=== PATIENT | female | born 1980 | race Caucasian/White ===

== ENCOUNTER 2018-07-02 09:59 | Outpatient (CLI) | payer OTHER ==
--- NOTE | 2018-07-02 11:54 | MRI ---
ADDENDUM: L4-L5: There is mild increased T2 weighted signal intensity seen on the fluid sensitive sequences, s een in the interspinous ligament, at the L4-L5 level, which may be related to mild strain. Prior lig amentous injury cannot be entirely excluded. IMPRESSION: There is mild increased T2 weighted signal intensity seen on the fluid sensitive sequences, seen in t he interspinous ligament, at the L4-L5 level, which may be related to mild strain. Prior ligamentous injury cannot be entirely excluded. POS: JOSE
--- NOTE | 2018-07-06 07:23 | MRI ---
MRI LUMBAR SPINE NONCONTRAST: 07/02/2018 HISTORY: Lumbar radiculopathy with pain radiating from the low back into the left lower extremity, to the leve l of the foot. Symptoms have been present for three to four months. COMPARISON: None available. FINDINGS: The retroperitoneal structures demonstrate a grossly normal nonenhanced MRI appearance. The conus me dullaris is normal in appearance and terminates at the T12-L1 level. There are endplate degenerative changes at the L4-L5 level. There is otherwise normal signal intensi ty demonstrated throughout the bone marrow. T12-L1: There is no disk bulge or disk herniation. The central spinal canal and neural foramina are patent. L1-L2: There is no disk bulge or disk herniation. The central spinal canal and neural foramina are parent. L2-L3: There is no disk bulge or disk herniation. The central spinal canal and neural foramina are patent. L3-L4: There is no disk bulge or disk herniation. The central spinal canal and neural foramina are patent. L4-L5: There is disk desiccation with loss of intervertebral disk height. There is a broad-based di sk osteophyte complex with a larger central disk protrusion. This results in severe narrowing of the central spinal canal with the central/slight left paracentral disk protrusion extending slightly inf eriorly and noted to be posterior to the superior endplate of the L5 vertebral body, which slightly e xtends to the left subarticular zone on the left, and findings likely affect both the traversing L5 n erve roots, slightly greater on the left. The neural foramina are patent. There is mild increased T2 weighted signal intensity seen on the fluid sensitive sequences, seen in t he interspinous ligament, at the L4-L5 level, which may be related to mild strain. Prior ligamentous injury cannot be entirely excluded. L5-S1: There is no disk bulge or disk herniation. The central spinal canal and neural foramina are patent. IMPRESSION: 1. Disk degenerative changes at the L4-L5 level with disk desiccation, disk osteophyte complex, and prominent central disk protrusion/tiny disk extrusion, which results in severe narrowing of the c entral spinal canal and slightly extends into the left subarticular zone. The disk protrusion/extrus ion probably affects the bilateral traversing L5 nerve roots. 2. Mild increased T2 weighted signal intensity seen in the interspinous ligament at the L4-L5 le [place], which may be related to mild strain. Ligamentous injury cannot be entirely excluded. POS: JOSE
== END 2018-07-02 10:00 | disposition home or self-care (01) ==
LOC: TBSIIMAG 09:59
PROVIDERS: ATTEND Neurological Surgery
DX: M51.16 Intervertebral disc disorders with radiculopathy, lumbar region (principal); M25.78 Osteophyte, vertebrae; M48.061 Spinal stenosis, lumbar region without neurogenic claudication; R93.7 Abnormal findings on diagnostic imaging of other parts of musculoskeletal system
CPT/HCPCS: 72148

== ENCOUNTER 2018-07-15 05:41 | Day surgery (SDC) | payer OTHER ==
[2018-07-14 08:56] VITALS: BMI 29.8
--- NOTE | 2018-07-14 17:18 | HP ---
HISTORY OF PRESENT ILLNESS: Ms. Michelle is a pleasant 37-year-old woman who presented today for 4 lopez hs of profound left lower extremity L5 pains with associated numbness and tingling. She has treated this with therapy, medication . She also has a new MRI from [facility] that reveals large central med iated disk herniation at L4-L5 encompassing about 2/3rds of the canal that account for pretty m uch any lower extremity pain. She hopes to get this surgically treated. On examination in the room, she is lying in the bed in significant distress. Even minor straightening of her leg from a 90 degr ee position causes searing pain down the left lower extremity. Gait is significantly altered seconda ry to pain. PAST MEDICAL HISTORY: Significant for hypercholesterolemia, depression, migraine headaches, anxiety. PAST SURGICAL HISTORY: None. MEDICATIONS: Lexapro, Claritin, Flonase, Naproxen. ALLERGIES: No known drug allergies. ASSESSMENT: Lumbar disk herniation with radiculopathy. PLAN: Dr. Araujo met with the patient, reviewed imaging and advocated for an L4 diskectomy. He expla ined to the patient the risks, benefits, and alternatives to the procedure. The patient expressed un derstanding and would like to proceed with surgery as discussed. I do believe the patient is mentall y competent and capable of making medical decisions for herself and we will move forward with surgery as planned. This is Tye Sargent PA-C dictating for Dr. Araujo.
[2018-07-15] MEDS ORDERED: CEFAZOLIN 2 GM/50 ML BAG ONE ×2 (06:12→11:40)
[2018-07-15] MEDS ORDERED: Bupivacaine HCl 0.5%/Epinephrine 1:200,000/PF 30 ml Vial ONE (06:28)
[2018-07-15] MEDS ORDERED: Thrombin 5000 UNITS/5 ML VIAL ONE (06:28)
[2018-07-15] MEDS ORDERED: Bupivacaine/Epinephrine 0.25% 30 ML VIAL ONE (06:28)
[2018-07-15] MEDS ORDERED: Midazolam HCl 2 mg/2 ml Vial ONE (06:50)
[2018-07-15] MEDS ORDERED: Fentanyl 100 MCG/2 ML VIAL ONE ×2 (06:57→08:32)
--- NOTE | 2018-07-15 07:09 | PRG ---
DATE OF SERVICE: 07/15/2018 Ms. Marte was seen in the outpatient setting for left leg pain most consistent with a left L5 radicul opathy. This is in the setting of an MRI which shows L4 disk which corresponds well to her pain. Mile higgins and I had not had a chance to meet in person and so we did so this morning where I reviewed with he r again the images. Her pattern of pain which remains an L5 pattern of pain down the left leg. I al so went over with her and her mother who was present the surgical procedure to be performed as well a s anticipated recovery. I also reviewed with her the risks, benefits, and alternatives to surgery. I answered their questions. They have provided for informed consent.
[2018-07-15] MEDS ORDERED: Meperidine HCl/PF 25 MG/ML VIAL ONE (08:55)
--- NOTE | 2018-07-15 10:54 | OP ---
DATE OF PROCEDURE: 07/15/2018 SURGEON: Flip Araujo M.D. LAMINATING MACHINE OFFBEARER: Tye Sargent PA-C. INDICATION: Pain. DIAGNOSIS: Lumbar radiculopathy. PROCEDURE: L4 diskectomy. ANESTHESIA: General. TECHNIQUE: The patient was brought into the operating room and placed under general anesthesia. She was flipped from a supine to a prone position on the operating room table. A linear incision was pl anned over the L4-L5 segment. After prepping and draping and after an appropriate operative pause, t he incision was created. The soft tissues were swept away from midline. A self-retaining retractor was placed. An Adson rongeur as well as a high-speed cutting drill bit as well as 2 and 3 mm Kerriso ns were used to perform a laminectomy at the L4-5 interface. The descending L5 nerve root on the lef t side was mobilized medially for access to the large protuberant disk which was incised with an 11 b lade knife. Disk material was removed using disk punches until there was decompression of the latera l recess and central canal. The wound was irrigated. Hemostasis was maintained throughout. The wou nd was then closed in anatomic layers and a pressure dressing was applied. There were no known proce dural complications.
[2018-07-15] MEDS ORDERED: PROPOFOL 200 MG/20 ML VIAL ONE (11:10)
[2018-07-15] MEDS ORDERED: Glycopyrrolate 0.2 MG/ML 5 ML SYRINGE ONE (11:10)
[2018-07-15] MEDS ORDERED: Ketorolac Tromethamine 30 MG/ML VIAL ONE (11:10)
[2018-07-15] MEDS ORDERED: Lidocaine 1% PF 5 ML VIAL ONE (11:10)
[2018-07-15] MEDS ORDERED: Dexamethasone 20 MG/5 ML VIAL ONE (11:10)
[2018-07-15] MEDS ORDERED: Ondansetron PF 4 MG/2 ML Vial ONE (11:10)
[2018-07-15] MEDS ORDERED: Promethazine HCl 25 MG/ML VIAL ONE (12:38)
[2018-07-15] MEDS ORDERED: Sodium Chloride 0.9% 0 ML ONE (12:39)
[2018-07-15] MEDS ORDERED: Sodium Chloride 0.9% 10 ML ONE (12:40)
== END 2018-07-15 13:39 | disposition home or self-care (01) ==
LOC: SDC 05:41
PROVIDERS: ATTEND Neurological Surgery
PROC: 0SB20ZZ Excision of Lumbar Vertebral Disc, Open Approach (ICD-10-PCS; principal; 2018-07-15)
DX: M51.16 Intervertebral disc disorders with radiculopathy, lumbar region (principal); E78.00 Pure hypercholesterolemia, unspecified; F32.9 Major depressive disorder, single episode, unspecified; F41.9 Anxiety disorder, unspecified; G43.909 Migraine, unspecified, not intractable, without status migrainosus
CPT/HCPCS: 76001; 96374; 96375; J0131; J0670; J1100; J1885; J2001; J2175; J2250; J2405; J2550; J2704; J3010; J7050